=== PATIENT | male | born 1945 | race Caucasian/White ===

== ENCOUNTER 2021-09-03 16:36 | Emergency (ER) | payer MEDICARE, SELFPAY ==
[2021-09-03] VITALS (7 sets, daily range): BP systolic 116–143; BP diastolic 68–76; PULSE 75–84; RESP 16–18; TEMP 36.6–37; O2SAT 92–99; BMI 27.9
--- NOTE | 2021-09-03 17:09 | ECG_ITS ---
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 Measurements Intervals [place] Rate: 84 P: 47 [place]: 192 QRS: 52 QRSD: 106 T: 55 QT: 361 QTc: 428 Interpretive Statements SINUS RHYTHM WITH OCCASIONAL VENTRICULAR PREMATURE COMPLEXES INTERPRETATION BASED ON A DEFAULT AGE OF 40 YEARS No previous ECG available for comparison Electronically Signed On 09-03-2021 22:16:48 QUILL CLEANER by Dennis Resendez M.D. [email or web address] Imagingnoxubee general [email or web address] International Payrollmercy health fairfield hospitalCloakroom/store/NU/[id number] f
--- NOTE | 2021-09-03 17:09 | XRR_ITS ---
PROCEDURE INFORMATION: Exam: XR Chest Exam date and time: 09/03/2021 5:09 PM Age: 76 years old Clinical indication: Chest wall pain; Additional info: Chest pain TECHNIQUE: Imaging protocol: XR of the chest. Views: 1 view. COMPARISON: CT Cervical Spine wo* [id number] 10/30/2017 7:44 PM FINDINGS: Lungs: Unremarkable. No consolidation. Pleural spaces: Unremarkable. No pleural effusion. No pneumothorax. Heart/Mediastinum: Unremarkable. No cardiomegaly. Bones/joints: Unremarkable. XR/XR chest 1V portable [id number] IMPRESSION: No acute findings.
[2021-09-03 17:16] LABS: Basophils % 0.4 %; Eosinophils # 0.2 10^3/uL (0.0-0.8); Eosinophils % 3.2 %; Hematocrit 46.7 % (42.0-52.0); Hemoglobin 15.3 g/dL (11.7-16.6); Lymphocytes # 1.8 10^3/uL (0.8-4.8); Lymphocytes % 27.2 %; Mean Corpuscular HGB Conc 32.8 g/dL (30.0-36.0); Mean Corpuscular Hemoglobin 29.5 pg (28.0-34.0); Mean Corpuscular Volume 90.2 fl (80-94); Mean Platelet Volume 9.2 fL (7.4-10.4); Monocytes # 0.6 10^3/uL (0.2-0.9); Monocytes % 9.5 %; Neutrophils # 4.02 10^3/uL (1.8-7.7); Neutrophils % 59.4 %; Nucleated Red Blood Cells % 0 %; Platelet Count 221 10^3/cmm (130-400); Red Blood Count 5.18 10^6/uL (4.1-5.3); Red Cell Distribution Width 12.4 % (12.1-15.1); White Blood Count 6.8 10^3/uL (4.0-10.0)
[2021-09-03 17:41] LABS: Troponin(5th) Baseline 10 ng/L (0-15)
[2021-09-03 17:51] LABS: Alanine Aminotransferase 19 U/L (0-41); Albumin Level 4.6 g/dL (3.5-5.2); Alkaline Phosphatase 77 IU/L (40-130); Anion Gap 15.2 (5-19); Aspartate Amino Transferase 18 U/L (0-40); Blood Urea Nitrogen 15 mg/dL (8-23); Calcium 9.9 mg/dL (8.5-10.5); Carbon Dioxide 28 mmol/L (22-29); Chloride 99 mmol/L (98-107); Globulin 3.1 g/dL (1.3-4.6); Glucose 87 mg/dL (65-115); Lipase 24 U/L (13-60); NT Pro B Type Natriuretic Pept 79 pg/mL (0-450); Osmolality Calculated 286 mOsm/kg (285-295); Potassium 4.2 mmol/L (3.5-5.1); Sodium 138 mmol/L (136-145); Total Bilirubin 0.5 mg/dL (0.15-1.2); Total Protein 7.7 g/dL (6.6-8.7)
--- NOTE | 2021-09-03 18:05 | W.ED.CHESTPA ---
HPI - Chest Pain General: Chief Complaint: Chest Pain Stated Complaint: CP Time Seen by Provider: 09/03/21 17:11 Source: patient Mode of arrival: ambulatory Limitations: no limitations History of Present Illness: 76-year-old male states over the last 2 weeks he has been having some intermittent chest pain. States it is comes randomly and then resolves on its own. States that he has he was having pain in the center of his chest is pressure type pain he states that since resolved he is currently pain-free is no shortness of breath with these episodes no radiation of the pain denies any nausea or vomiting. Does have a history of high blood pressure Associated symptoms: Deny abdominal pain, dyspnea, fever(s), nausea or vomiting Review of Systems Const: Denies: fever(s), chills, body aches or change in appetite Eyes: Denies: blurry vision or eye discomfort ENMT: Denies: throat pain or dental pain Card: Reports: chest pain Resp: Denies: dyspnea GI: Denies: abdominal pain, nausea, vomiting or diarrhea : Denies: dysuria Musc: Denies: neck pain or back pain Skin/Breast: Denies: rash Neuro: Denies: headache(s) Psych: Denies: depression Marcel/Lymph: Denies: easy bruising All/Imm: Denies: urticaria PFSH ED PFSH: Medical History Hypertension Social History (Updated 09/03/21 @ 18:05 by Juany Burch MD) Substance/Drug Use: never Physical Exam Const: COMMON NORMALS: no acute distress, patient oriented x3 and healthy appearing HENMT: COMMON NORMALS: normocephalic and atraumatic HEAD & SCALP: normocephalic and atraumatic Eye: COMMON NORMALS: Equal, round and reactive pupils present and EOMs intact bilaterally PUPIL: Yes Equal, round and reactive pupils present Neck/C-Spine: COMMON NORMALS: full ROM and supple Chest: COMMONS NORMALS: normal inspection of the chest and normal palpation of entire chest wall Resp: COMMON NORMALS: normal respiratory effort, No retractions, No use of accessory muscles and clear to auscultation bilaterally AUSCULTATION: clear to auscultation bilaterally Cardio: COMMON NORMALS: regular rate, regular rhythm and No murmurs present (Cardio) RATE: regular rate RHYTHM: regular rhythm GI: COMMON NORMALS: Normal to inspection, nondistended, normoactive bowel sounds present, Soft to palpation, non-tender and no masses PALPATION: Yes Soft to palpation Extremity: COMMON NORMALS: normal to inspection and full ROM Neuro: COMMON NORMALS: patient oriented x3, moves all extremities and no focal motor deficits Psych: COMMON NORMALS: mental status grossly normal, Normal thought process present and cooperative THOUGHT PROCESS: Normal thought process present Skin: COMMON NORMALS: no rashes or lesions noted and no wounds GENERAL SKIN EXAM: no rashes or lesions noted Course Vital Signs: Vital signs: Vital Signs Temperature 98.4 F 09/03/21 18:00 Pulse Rate 75 09/03/21 19:32 Respiratory Rate 18 09/03/21 19:32 Blood Pressure 120/68 09/03/21 19:32 Pulse Oximetry 96 09/03/21 19:32 MDM - Chest Pain Medical Decision Making Patient presents here with chest pain has been going on for weeks he has been pain-free here EKG and troponins here are normal. He feels improved Bhupinder here as well. He is stable for discharge we will get him follow-up with cardiology he is return if worsening he understands agrees to plan. He has no signs of aortic dissection or pulmonary embolism. Lab Data : 09/03/21 17:06 09/03/21 17:06 Radiology Impressions Chest X-Ray 09/03/21 17:09 IMPRESSION: No acute findings. Laboratory Results WBC 6.8 10^3/uL (4.0-10.0) 09/03/21 17:06 RBC 5.18 10^6/uL (4.1-5.3) 09/03/21 17:06 Hgb 15.3 g/dL (11.7-16.6) 09/03/21 17:06 Hct 46.7 % (42.0-52.0) 09/03/21 17:06 MCV 90.2 fl (80-94) 09/03/21 17:06 MCH 29.5 pg (28.0-34.0) 09/03/21 17:06 MCHC 32.8 g/dL (30.0-36.0) 09/03/21 17:06 RDW 12.4 % (12.1-15.1) 09/03/21 17:06 Plt Count 221 10^3/cmm (130-400) 09/03/21 17:06 MPV 9.2 fL (7.4-10.4) 09/03/21 17:06 Neut % (Auto) 59.4 % 09/03/21 17:06 Lymph % (Auto) 27.2 % 09/03/21 17:06 [place] % (Auto) 9.5 % 09/03/21 17:06 Eos % (Auto) 3.2 % 09/03/21 17:06 Baso % (Auto) 0.4 % 09/03/21 17:06 Neut # (Auto) 4.02 10^3/uL (1.8-7.7) 09/03/21 17:06 Lymph # (Auto) 1.8 10^3/uL (0.8-4.8) 09/03/21 17:06 [place] # (Auto) 0.6 10^3/uL (0.2-0.9) 09/03/21 17:06 Eos # (Auto) 0.2 10^3/uL (0.0-0.8) 09/03/21 17:06 Baso # (Auto) 0.0 10^3/uL (0.0-0.1) 09/03/21 17:06 Nucleated RBC % (auto) 0 % 09/03/21 17:06 Nucleated RBCs # 0.0 /100WBC 09/03/21 17:06 Sodium 138 mmol/L (136-145) 09/03/21 17:06 Potassium 4.2 mmol/L (3.5-5.1) 09/03/21 17:06 Chloride 99 mmol/L (98-107) 09/03/21 17:06 Carbon Dioxide 28 mmol/L (22-29) 09/03/21 17:06 Anion Gap 15.2 (5-19) 09/03/21 17:06 BUN 15 mg/dL (8-23) 09/03/21 17:06 Creatinine 1.3 mg/dL (0.7-1.2) H 09/03/21 17:06 GFR Calculation Not Reportable 09/03/21 17:06 Glucose 87 mg/dL (65-115) 09/03/21 17:06 Calculated Osmolality 286 mOsm/kg (285-295) 09/03/21 17:06 Calcium 9.9 mg/dL (8.5-10.5) 09/03/21 17:06 Total Bilirubin 0.5 mg/dL (0.15-1.2) 09/03/21 17:06 AST 18 U/L (0-40) 09/03/21 17:06 ALT 19 U/L (0-41) 09/03/21 17:06 Alkaline Phosphatase 77 IU/L (40-130) 09/03/21 17:06 Troponin T Baseline 10 ng/L (0-15) 09/03/21 17:06 Troponin T 120 Minute 9.72 ng/L (0-15) 09/03/21 19:01 NT-Pro-B Natriuret Pep 79 pg/mL (0-450) 09/03/21 17:06 Total Protein 7.7 g/dL (6.6-8.7) 09/03/21 17:06 Albumin 4.6 g/dL (3.5-5.2) 09/03/21 17:06 Globulin 3.1 g/dL (1.3-4.6) 09/03/21 17:06 Lipase 24 U/L (13-60) 09/03/21 17:06 EKG Data EKG 1: I personally reviewed and interpreted this EKG as follows: EKG interpretation date: 09/03/21 EKG interpretation time: 16:44 Interpretation: nsr hr [address] or t wave abnormalities qrs 106 qtc 402 EKG 2: I personally reviewed and interpreted this EKG as follows: EKG interpretation date: 09/03/21 EKG interpretation time: 17:33 Interpretation: nsr hr [address] or t wave abnormalities qrs 105 qtc 411 Discharge Plan Discharge Patient Disposition: Home Clinical Impression: Chest pain Prescriptions: No Action lisinopril 20 mg tablet 20 mg PO DAILY 0RF tamsulosin 0.4 mg capsule 0.4 mg PO DAILY 0RF Discharge Orders: Discharge ED (Routine); Ordered 09/03/21 Ordered By: Juany Burch Referrals: Herb Reyes MD [Physician] - 1-3 days Discharge Diet: Advance as tolerated Discharge Activity: Resume usual activity Patient Instructions: Chest Pain (ED) Coding Level of Care Code ED Sand Plant Attendant for Chg Fwd Exam Comprehensive
--- NOTE | 2021-09-03 19:09 | ECG_ITS ---
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 Measurements Intervals [place] Rate: 68 P: 52 [place]: 193 QRS: 40 QRSD: 102 T: 46 QT: 385 QTc: 412 Interpretive Statements SINUS RHYTHM Compared to ECG 09/03/2021 16:44:54 Ventricular premature complex(es) no longer present Electronically Signed On 09-03-2021 22:20:52 BULLET SLUG CASTING MACHINE OPERATOR by Dennis Resendez M.D. [id number]
[2021-09-03 19:52] LABS: Troponin 5 2HR 9.72 ng/L (0-15)
[2021-09-03 20:02] LABS: Troponin 5 2HR Delta -0.28 ABS# (0-10)
--- NOTE | 2021-09-04 12:16 | DCPLANNER ---
Addendum entered by Rhonda Severino 09/13/21 14:40: Patient had a follow up appointment for patient with [facility] on 09.13.21 - patient did attend appointment. Original Note: commercial sales manager had message to schedule a follow up appointment for patient with [facility]. commercial sales manager called [facility], spoke with Miriam, gave clinic patients information. A follow up appointment is scheduled for , September 06, 2021 at 11:[address] Verdin. Patient is aware of appointment.
== END 2021-09-03 20:03 | disposition home or self-care (01) ==
PROVIDERS: Emergency Medicine; Emergency Provider Emergency Medicine
DX: R07.9 Chest pain, unspecified (principal); I10 Essential (primary) hypertension
CPT/HCPCS: 71045; 80053; 83690; 83880; 84484; 85025; 93005; 99283

== ENCOUNTER → 2021-09-13 10:14 | Outpatient (BNVA) | payer MEDICARE, SELFPAY | PROVIDERS: Visit Provider Internal Medicine Cardiovascular Disease | DX: I10 Essential (primary) hypertension (principal); Z09 Encounter for follow-up examination after completed treatment for conditions other than malignant neoplasm; R55 Syncope and collapse; R07.89 Other chest pain | CPT/HCPCS: 99024 ==

== ENCOUNTER 2022-01-07 12:33 | Outpatient (CLI) | payer MEDICARE, SELFPAY ==
--- NOTE | 2022-01-07 12:45 | USCV_ITS ---
Dillon Bradshaw Age: 76 Gender: M : 1945 Exam Date: 01/07/2022 13:35 Ordering Phys: Nasrin Echeverria MD ([email or web address]) Technologist: HAMILTON Exam Location: [facility] [place] Indication: History of valve disease BP: 118 / 66 HR: 67 Rhythm: Sinus Technical Quality: Suboptimal MEASUREMENTS (Male / Female) Normal Values 2D ECHO LV Diastolic Diameter PLAX 4.7 cm 4.2 - 5.9 / 3.9 - 5.3 cm LV Systolic Diameter PLAX 3.7 cm IVS Diastolic Thickness 1.2 cm 0.6 - 1.0 / 0.6 - 0.9 cm IVS Systolic Thickness 1.4 cm LVPW Diastolic Thickness 1.2 cm 0.6 - 1.0 / 0.6 - 0.9 cm LVPW Systolic Thickness 1.6 cm RV Chamber Size 2.7 cm LVOT Diameter 2.0 cm LV Ejection Fraction 2D Teich 45.1 % LV Ejection Fraction MOD 2C 44.0 % LV Ejection Fraction 2C AL 46.2 % LA Diameter 3.5 cm LA Width 3.1 cm LA Height 4.5 cm RA Width 3.4 cm RA Height 4.9 cm Aorta at Sinotubular Diameter 3.3 cm IVC Diameter 1.6 cm M-MODE Aortic Annulus Diameter 3.7 cm LA Ao Ratio MM 1.1 MV E Point Septal Separation 0.9 cm DOPPLER AV Peak Velocity 125.0 cm/s LVOT Peak Velocity 100.0 cm/s AV Area Cont Eq vti 2.8 cm squared AV Area Cont Eq pk 2.5 cm squared MV Area PHT 3.5 cm squared Mitral E to A Ratio 0.9 MV E' Velocity 29.0 cm/s Mitral E to MV E' Ratio 9.0 Mitral E to LV E' Lateral Ratio 7.3 Mitral E to LV E' Septal Ratio 11.7 TR Peak Velocity 194.0 cm/s TR Peak Gradient 15.1 mmHg Right Atrial Pressure 3.0 mmHg Pulmonary Artery Systolic Pressu 18.1 mmHg PV Peak Velocity 79.0 cm/s RV Acceleration Time 0.1 s RV Ejection Time 0.3 s RV AcT/ET 0.4 FINDINGS Left Ventricle Normal left ventricular size and systolic function, EF 57 %. No regional wall motion abnormalities. Grade I/IV diastolic dysfunction (abnormal relaxation filling pattern), normal to mildly elevated filling pressures. Right Ventricle The right ventricle is normal in size and function. Right Atrium The right atrium is normal in size. Left Atrium The left atrium is normal in size. Mitral Valve Thickened mitral valve. Aortic Valve Thickened aortic valve. Tricuspid Valve Trace tricuspid valve regurgitation. Pulmonic Valve Pulmonic valve not well visualized. Pericardium Normal pericardium without effusion. Aorta Normal aortic annulus size. IVC Normal inferior vena cava. CONCLUSIONS Normal left ventricular size and systolic function, EF 57 %. No regional wall motion abnormalities. Grade I/IV diastolic dysfunction (abnormal relaxation filling pattern), normal to mildly elevated filling pressures. Thickened aortic and mitral valves. Trace tricuspid valve regurgitation. Estimated pulmonary artery peak systolic pressure, within normal limits There is no pericardial effusion. There are no intracardiac masses. No similar previous studies are available for comparison Dr Nasrin Echeverria MD FACC (Electronically Signed) Final Date: 07 January 2022 20:36 S
== END 2022-01-07 12:34 | disposition home or self-care (01) ==
PROVIDERS: Visit Provider Internal Medicine Cardiovascular Disease
DX: R06.00 Dyspnea, unspecified (principal); R07.89 Other chest pain
CPT/HCPCS: 93306

== ENCOUNTER 2022-03-01 04:38 | Emergency (ER) | payer MEDICARE, SELFPAY ==
[2022-03-01 05:03] VITALS: BP 174/118; PULSE 84; RESP 20; TEMP 36.7; O2SAT 96; BMI 27.2
--- NOTE | 2022-03-01 05:07 | ED_ITS ---
HPI - Abdominal Pain General: Chief Complaint: Urogenital-Male Stated Complaint: Can not Pee Time Seen by Provider: 03/01/22 05:03 Source: patient Mode of arrival: ambulatory Limitations: no limitations History of Present Illness: 76-year-old male states he is not been able to urinate since 10 PM last night. He states he had a difficult time in the past but is never where he could not urinate states has not been able urinate at all and started to have pain in his lower abdomen. He states he feels the urge but not able to produce any urine. No history of prostate problems he knows of denies any vomiting diarrhea or fever. Associated Symptoms: Denies chills and fever(s) Review of Systems Const: Denies: fever(s), chills, body aches or change in appetite Eyes: Denies: blurry vision or eye discomfort ENMT: Denies: throat pain or dental pain Card: Denies: chest pain Resp: Denies: dyspnea GI: Reports: abdominal pain : Reports: difficulty urinating Musc: Denies: neck pain or back pain Skin/Breast: Denies: rash Neuro: Denies: headache(s) Psych: Denies: depression Marcel/Lymph: Denies: easy bruising All/Imm: Denies: urticaria PFSH ED PFSH: Medical History Hypertension Family History Mother CAD (coronary artery disease) murmur Dementia Father Cancer Denies family history of Diabetes Clotting disorder Chronic kidney disease (CKD) Suicide Anesthesia complication Bleeding disorder Lung disease Stroke Social History Smoking and tobacco status: never smoked Alcohol intake: never Physical Exam Const: COMMON NORMALS: no acute distress, patient oriented x3 and healthy appearing HENMT: COMMON NORMALS: normocephalic and atraumatic HEAD & SCALP: normocephalic and atraumatic Eye: COMMON NORMALS: Equal, round and reactive pupils present and EOMs intact bilaterally PUPIL: Yes Equal, round and reactive pupils present Neck/C-Spine: COMMON NORMALS: full ROM and supple Chest: COMMONS NORMALS: normal inspection of the chest and normal palpation of entire chest wall Resp: COMMON NORMALS: normal respiratory effort, No retractions, No use of accessory muscles and clear to auscultation bilaterally AUSCULTATION: clear to auscultation bilaterally Cardio: COMMON NORMALS: regular rate, regular rhythm and No murmurs present (Cardio) RATE: regular rate RHYTHM: regular rhythm GI: COMMON NORMALS: Normal to inspection, nondistended, normoactive bowel sounds present, Soft to palpation and no masses PALPATION: Yes Soft to palpation OTHER: suprapubic tenderness Extremity: COMMON NORMALS: normal to inspection and full ROM Neuro: COMMON NORMALS: patient oriented x3, moves all extremities and no focal motor deficits Psych: COMMON NORMALS: mental status grossly normal, Normal thought process present and cooperative THOUGHT PROCESS: Normal thought process present Skin: COMMON NORMALS: no rashes or lesions noted and no wounds GENERAL SKIN EXAM: no rashes or lesions noted Course Vital Signs: Vital signs: Vital Signs Temperature 98.0 F 03/01/22 05:03 Pulse Rate 84 03/01/22 05:03 Respiratory Rate 20 H 03/01/22 05:03 Blood Pressure 174/118 03/01/22 05:03 Pulse Oximetry 96 03/01/22 05:03 MDM - Abdominal Pain Medical Decision Making Patient presents with urinary retention he feels much improved after Lewis had a large amount of urine out will leave Lewis in place he is to follow-up with Dr. Goodson he understands agrees to plan. Lab Data Labs/Radiology: Laboratory Results Urine Color Colorless (Yellow) 03/01/22 05:15 Urine Appearance Clear (CLEAR) 03/01/22 05:15 Urine pH 6.5 (5-7) 03/01/22 05:15 Ur Specific Isabella 1.010 (1.005-1.030) 03/01/22 05:15 Urine Protein Neg (Negative) 03/01/22 05:15 Urine Glucose (UA) Norm (Normal) 03/01/22 05:15 Urine Ketones Negative (Negative) 03/01/22 05:15 Urine Blood Trace (Negative) H 03/01/22 05:15 Urine Nitrate Negative (Negative) 03/01/22 05:15 Urine Bilirubin Neg (Negative) 03/01/22 05:15 Urine Urobilinogen Norm mg/dL (Negative) 03/01/22 05:15 Ur Leukocyte Esterase Negative (Negative) 03/01/22 05:15 Discharge Plan Discharge Patient Disposition: Home Clinical Impression: Acute urinary retention Condition: Stable Prescriptions: No Action metoprolol tartrate 25 mg tablet 25 mg PO BID Qty: 60 5RF Rx Instructions: 1 tab twice daily for irregular heart rhythm magnesium L-lactate [Magtab] 84 mg tablet extended release 168 mg PO DAILY Qty: 60 5RF Rx Instructions: 2 tabs daily for irregular heart rhythm lisinopril 20 mg tablet 20 mg PO DAILY tamsulosin 0.4 mg capsule 0.4 mg PO DAILY Discharge Orders: Discharge ED (Routine); Ordered 03/01/22 Ordered By: Juany Burch Referrals: Nikos Goodson MD [Physician] - 1-3 days Discharge Diet: Advance as tolerated Discharge Activity: Resume usual activity Patient Instructions: Urinary Retention in Men (ED) Coding Level of Care Code ED Consulting Sme for Mehnaz Fwd Exam Comprehensive
[2022-03-01 05:38] LABS: Urine Appearance Clear (CLEAR); Urine Color Colorless (Yellow); pH Urine 6.5 (5-7)
[2022-03-01 05:39] LABS: Add Urine Microscopic? YES; Bilirubin Urine Neg (Negative); Blood Urine Trace (Negative); Glucose Urine UA Norm (Normal); Ketones Urine Negative (Negative); Leukocyte Esterase Urine Negative (Negative); Nitrate Urine Negative (Negative); Protein Urine Neg (Negative); Urobilinogen Urine Norm (Negative)
[2022-03-01 05:52] VITALS: BP 144/84; RESP 18
[2022-03-01 05:53] LABS: Add Urine Culture? No; RBC Urine 0-4 /hpf (0-2)
== END 2022-03-01 05:52 | disposition home or self-care (01) ==
LOC: ER 05:30
PROVIDERS: Emergency Provider Emergency Medicine
DX: R33.9 Retention of urine, unspecified (principal); I10 Essential (primary) hypertension
CPT/HCPCS: 51702; 81001; 99283

== ENCOUNTER 2022-03-07 14:24 | Emergency (ER) | payer MEDICARE, SELFPAY ==
[2022-03-07 15:14] VITALS: PULSE 109; RESP 18; TEMP 37.6; O2SAT 96; BMI 27.9
--- NOTE | 2022-03-07 16:41 | W.ED.MALEGU ---
HPI - Male Genitourinary General: Chief complaint: Back Pain/Injury Stated complaint: infection in his penis (catater) Time Seen by Provider: 03/07/22 16:23 Source: patient and family Mode of arrival: ambulatory Limitations: no limitations History of Present Illness: This patient returns to the emergency part because of urinary urgency, some mild low back pain and what he thinks is some purulent drainage around his Lewis. He had a Lewis placed last week because of urinary retention and has been doing okay up until the last 2 to 3 days. He denies any fevers or known chills. He states he has been taking Flomax twice a day as well as some [id number] prostate medications. He states he has been drinking fluids. No cough, sore throat or other potential etiology to ill feeling. Context: indwelling catheter Associated symptoms: Deny nausea or vomiting Review of Systems Const: Denies: fever(s) or chills Eyes: Denies: change in vision ENMT: Denies: odynophagia or nasal congestion Card: Denies: chest pain, palpitations or edema Resp: Denies: dyspnea, productive cough or non-productive cough GI: Denies: nausea, vomiting or diarrhea : Reports: urinary urgency; Denies: flank pain Musc: Denies: neck pain, extremity pain or extremity swelling Skin/Breast: Denies: rash Neuro: Denies: headache(s) Psych: Denies: anxiety or depression [facility] ED PFSH: Medical History Hypertension Family History Mother CAD (coronary artery disease) murmur Dementia Father Cancer Denies family history of Diabetes Clotting disorder Chronic kidney disease (CKD) Suicide Anesthesia complication Bleeding disorder Lung disease Stroke Social History Smoking and tobacco status: never smoked Alcohol intake: never Physical Exam Narrative: EXAM NARRATIVE: He is cooperative makes good eye contact. Answers questions in a fluent, goal-directed fashion. Const: COMMON NORMALS: average body habitus and patient oriented x3 GENERAL APPEARANCE: cooperative and comfortable HENMT: COMMON NORMALS: normocephalic, Normal nasal mucous membranes and turbinates present and moist oral mucous membranes HEAD & SCALP: normocephalic NOSE: Normal nasal mucous membranes and turbinates present Eye: COMMON NORMALS: Equal, round and reactive pupils present, EOMs intact bilaterally and conjunctivae normal CONJUNCTIVA: Yes conjunctivae normal PUPIL: Yes Equal, round and reactive pupils present Neck/C-Spine: COMMON NORMALS: full ROM, no lymphadenopathy and No carotid bruits Chest: COMMONS NORMALS: normal inspection of the chest Resp: COMMON NORMALS: normal respiratory effort, No use of accessory muscles and clear to auscultation bilaterally AUSCULTATION: clear to auscultation bilaterally Cardio: COMMON NORMALS: regular rate, regular rhythm and Peripheral pulses 2+ throughout RATE: regular rate RHYTHM: regular rhythm PERIPHERAL PULSES: Peripheral pulses 2+ throughout GI: COMMON NORMALS: Normal to inspection, nondistended, normoactive bowel sounds present, Soft to palpation and non-tender PALPATION: Yes Soft to palpation : COMMON NORMALS: Yes no CVA tenderness BLADDER/KIDNEY EXAM: Yes catheter in place and Yes no CVA tenderness PENIS: uncircumcised OTHER: His Lewis is in situ. He has some very minimal irritation and erythema of the urethral meatus. He does have some erythema to the skin to the left of his inguinal crease. No drainage no breakdown. Bedside ultrasound was used to visualize the urinary bladder. It appeared to be decompressed and with a small amount of fluid around what appeared to be a inflated Lewis balloon within the confines of the urinary bladder. Back/Pelvis: COMMON NORMALS: no CVA tenderness, thoracic and lumbar spine normal to inspection and thoraco-lumbar ROM normal Extremity: COMMON NORMALS: normal to inspection, full ROM and no pedal edema Neuro: COMMON NORMALS: patient oriented x3, moves all extremities, no focal motor deficits and no sensory deficits noted SPEECH: speech normal Psych: COMMON NORMALS: mental status grossly normal Skin: COMMON NORMALS: turgor normal NARRATIVE SKIN EXAM: Mild erythema in the left inguinal crease and the left side of the scrotal skin as noted above. GENERAL SKIN EXAM: turgor normal Course Reevaluation(s): Reevaluation #1: Patient states he is feeling much better. He is received his antibiotics. He is looks comfortable on clinical examination without any new or focal findings. Time: 20:14 Vital Signs: Vital signs: Vital Signs Temperature 99.7 F H 03/07/22 15:14 Pulse Rate 86 03/07/22 18:52 Respiratory Rate 14 03/07/22 18:52 Blood Pressure 139/75 03/07/22 18:52 Pulse Oximetry 93 03/07/22 18:52 Oxygen Delivery Me thod 03/07/22 18:52 MDM - Male Medical Decision Making WithPatient had an indwelling Lewis for urinary retention systemic symptoms suggestive of possible infection versus catheter malfunction. His evaluation in the emergency department did find nitrite positive urine suggestive of lower urinary tract infection. No evidence to suggest sepsis or other worrisome medical condition at this time. He was given the benefit of IV antibiotics IV fluids and antispasmodics. He will be discharged on antibiotics until he sees the urologist this coming week. We will also provide him with antispasmodics. All return precautions were discussed in detail with both he and spouse. Medical Records I reviewed the patient's medical records. Lab Data I reviewed the patient's lab results. : 03/07/22 17:15 03/07/22 19:35 Laboratory Results WBC 14.7 10^3/uL (4.0-10.0) H 03/07/22 17:15 RBC 4.58 10^6/uL (4.1-5.3) 03/07/22 17:15 Hgb 13.6 g/dL (11.7-16.6) 03/07/22 17:15 Hct 40.9 % (42.0-52.0) L 03/07/22 17:15 MCV 89.3 fl (80-94) 03/07/22 17:15 MCH 29.7 pg (28.0-34.0) 03/07/22 17:15 MCHC 33.3 g/dL (30.0-36.0) 03/07/22 17:15 RDW 13.0 % (12.1-15.1) 03/07/22 17:15 Plt Count 174 10^3/cmm (130-400) 03/07/22 17:15 MPV 9.8 fL (7.4-10.4) 03/07/22 17:15 Neut % (Auto) 85.1 % 03/07/22 17:15 Lymph % (Auto) 5.2 % 03/07/22 17:15 [place] % (Auto) 8.9 % 03/07/22 17:15 Eos % (Auto) 0.2 % 03/07/22 17:15 Baso % (Auto) 0.2 % 03/07/22 17:15 Neut # (Auto) 12.50 10^3/uL (1.8-7.7) H 03/07/22 17:15 Lymph # (Auto) 0.8 10^3/uL (0.8-4.8) 03/07/22 17:15 [place] # (Auto) 1.3 10^3/uL (0.2-0.9) H 03/07/22 17:15 Eos # (Auto) 0.0 10^3/uL (0.0-0.8) 03/07/22 17:15 Baso # (Auto) 0.0 10^3/uL (0.0-0.1) 03/07/22 17:15 Nucleated RBC % (auto) 0 % 03/07/22 17:15 Nucleated RBCs # 0.0 /100WBC 03/07/22 17:15 Sodium Cancelled 03/07/22 17:15 Potassium 4.1 mmol/L (3.5-5.1) 03/07/22 19:35 Chloride 98 mmol/L (98-107) 03/07/22 19:35 Carbon Dioxide 25 mmol/L (22-29) 03/07/22 19:35 Anion Gap 15.1 (5-19) 03/07/22 19:35 BUN 13 mg/dL (8-23) 03/07/22 19:35 Creatinine 0.9 mg/dL (0.7-1.2) 03/07/22 19:35 GFR Calculation Not Reportable 03/07/22 19:35 Glucose 106 mg/dL (65-115) 03/07/22 19:35 Calculated Osmolality Cancelled 03/07/22 17:15 Lactate 1.4 mmol/L (0.5-2.2) 03/07/22 17:15 Calcium 9.3 mg/dL (8.5-10.5) 03/07/22 19:35 Total Bilirubin 0.3 mg/dL (0.15-1.2) 03/07/22 19:35 AST 17 U/L (0-40) 03/07/22 19:35 ALT 17 U/L (0-41) 03/07/22 19:35 Alkaline Phosphatase 81 U/L (40-130) 03/07/22 19:35 Total Protein 7.0 g/dL (6.6-8.7) 03/07/22 19:35 Albumin Cancelled 03/07/22 17:15 Globulin 3.6 g/dL (1.3-4.6) 03/07/22 19:35 Urine Color Yellow (Yellow) 03/07/22 18:15 Urine Appearance Hazy (CLEAR) A 03/07/22 18:15 Urine pH 6 (5-7) 03/07/22 18:15 Ur Specific [place] 1.015 (1.005-1.030) 03/07/22 18:15 Urine Protein 2+ (Negative) H 03/07/22 18:15 Urine Glucose (UA) Norm (Normal) 03/07/22 18:15 Urine Ketones 1+ (Negative) H 03/07/22 18:15 Urine Blood 3+ (Negative) H 03/07/22 18:15 Urine Nitrate Positive (Negative) H 03/07/22 18:15 Urine Bilirubin Neg (Negative) 03/07/22 18:15 Urine Urobilinogen 4+ mg/dL (Negative) H 03/07/22 18:15 Ur Leukocyte Esterase 2+ (Negative) H 03/07/22 18:15 Urine RBC Not Reportable 03/07/22 18:15 Urine WBC Not Reportable 03/07/22 18:15 Ur Squamous Epith Cells Not Reportable 03/07/22 18:15 Amorphous Sediment Not Reportable 03/07/22 18:15 Urine Bacteria Not Reportable 03/07/22 18:15 Discharge Plan Discharge Patient Disposition: Home Clinical Impression: Urinary tract infection, Acute urinary retention Condition: Stable Prescriptions: New sulfamethoxazole-trimethoprim [Bactrim DS] 800-160 mg tablet 1 tab PO BID 7 Days Qty: 14 0RF hyoscyamine sulfate [Levsin] 0.125 mg tablet 0.125 mg PO TID PRN (Reason: bladder spasms) Qty: 20 0RF No Action tamsulosin 0.4 mg capsule 0.4 mg PO DAILY Prostate Max Plus 125 mg-10 mcg- 250 mg Tablet 2 tab PO DAILY Discharge Orders: Discharge ED (Routine); Ordered 03/07/22 Ordered By: Harlan Shetty Discharge Diet: Usual diet Discharge Activity: Increase activity as tolerated Patient Instructions: Opioid Safety Activity Restrictions/Additional Instructions: Only take 1 Flomax pill daily. We recommend taking it at bedtime. Take the antibiotics prescribed beginning tomorrow morning twice daily for the next 7 days. You may use the Levsin as needed for any bladder spasm. Should you develop high fevers, intolerance to medication, increasing or changing pain or any other concern return to this or the nearest emergency department. Follow-up with urologist as scheduled. Coding Level of Care Code ED Mold Shifter for Mehnaz Bagley Exam Comprehensive
[2022-03-07 17:39] LABS: Basophils % 0.2 %; Eosinophils % 0.2 %; Hematocrit 40.9 % (42.0-52.0); Hemoglobin 13.6 g/dL (11.7-16.6); Lymphocytes # 0.8 10^3/uL (0.8-4.8); Lymphocytes % 5.2 %; Mean Corpuscular HGB Conc 33.3 g/dL (30.0-36.0); Mean Corpuscular Hemoglobin 29.7 pg (28.0-34.0); Mean Corpuscular Volume 89.3 fl (80-94); Mean Platelet Volume 9.8 fL (7.4-10.4); Monocytes # 1.3 10^3/uL (0.2-0.9); Monocytes % 8.9 %; Neutrophils % 85.1 %; Nucleated Red Blood Cells % 0 %; Platelet Count 174 10^3/cmm (130-400); Red Blood Count 4.58 10^6/uL (4.1-5.3); White Blood Count 14.7 10^3/uL (4.0-10.0)
--- NOTE | 2022-03-07 17:40 | PC.PHAR ---
pt had lisinopril 20mg filled 02/12/22 90ds - pt states he stopped taking med because it made him fell loopy pt sts he only takes prostate med and prostate vitamins at this time
[2022-03-07 17:56] LABS: Lactate (Lactic Acid level) 1.4 mmol/L (0.5-2.2)
[2022-03-07] MEDS: hyoscyamine ODT 0.125 mg Tablet 0.25 MG PO (18:22)
[2022-03-07 18:33] LABS: Charge for UA Resulting for Rev
[2022-03-07 18:46] LABS: Bilirubin Urine Neg (Negative); Blood Urine 3+ (Negative); Glucose Urine UA Norm (Normal); Ketones Urine 1+ (Negative); Nitrate Urine Positive (Negative); Protein Urine 2+ (Negative); Specific Gravity, Urine 1.015 (1.005-1.030); Urine Appearance Hazy (CLEAR); Urine Color Yellow (Yellow); Urobilinogen Urine 4+ mg/dL (Negative); pH Urine 6 (5-7)
[2022-03-07 18:47] LABS: Add Urine Culture? Yes; Add Urine Microscopic? YES; Leukocyte Esterase Urine 2+ (Negative)
[2022-03-07 18:52] VITALS: BP 139/75; PULSE 86; RESP 14; O2SAT 93
[2022-03-07 19:37] VITALS: O2SAT 95
[2022-03-07] MEDS: cefTRIAXone 2,000 MG in sodium chloride 0.9% (plus) 50 ML 100 MG IV (19:53)
[2022-03-07 20:00] VITALS: BP 131/79; O2SAT 96
[2022-03-07 20:14] LABS: Alanine Aminotransferase 17 U/L (0-41); Albumin Level 3.4 g/dL (3.5-5.2); Alkaline Phosphatase 81 U/L (40-130); Anion Gap 15.1 (5-19); Aspartate Amino Transferase 17 U/L (0-40); Blood Urea Nitrogen 13 mg/dL (8-23); Calcium 9.3 mg/dL (8.5-10.5); Carbon Dioxide 25 mmol/L (22-29); Chloride 98 mmol/L (98-107); Globulin 3.6 g/dL (1.3-4.6); Glucose 106 mg/dL (65-115); Osmolality Calculated 279 mOsm/kg (285-295); Potassium 4.1 mmol/L (3.5-5.1); Sodium 134 mmol/L (136-145); Total Bilirubin 0.3 mg/dL (0.15-1.2)
[2022-03-07 20:30] VITALS: BP 145/79; O2SAT 94
== END 2022-03-07 21:00 | disposition home or self-care (01) ==
PROVIDERS: Emergency Provider Emergency Medicine
DX: N39.0 Urinary tract infection, site not specified (principal); R33.9 Retention of urine, unspecified; I10 Essential (primary) hypertension
CPT/HCPCS: 80053; 81001; 81003; 83605; 85025; 87077; 87086; 87186; 96374; 99284; J0696

== ENCOUNTER 2022-03-25 06:45 | Outpatient (CLI) | payer MEDICARE, SELFPAY ==
[2022-03-25 06:54] VITALS: BMI 27.2
--- NOTE | 2022-03-25 07:08 | NMCV_ITS ---
NM [place] perf SPECT r/s* [id number] Dillon Bradshaw Age: 76 Gender: M : 1945 Exam Date: 03/25/2022 07:53 Ordering Phys: Nasrin Echeverria MD ([email or web address]) Technologist: JORGE Larson Exam Location: [facility] Indications: SHORTNESS OF BREATH, CHEST PAIN STRESS TEST Please see separate stress test report in [facility] for full findings IMAGE PROTOCOL Rest/Stress 1 Lexiscan Day Radiopharmaceutical Dose (mCi) Administration Site Administered by Rest: Tc-99m 10.7 IV JORGE Flores Sestamibi Stress:Tc-99m 32.8 IV JORGE Larson Sestamimary Rest: 25-Mar-2022 60 Discovery 630 Stress: 25-Mar-2022 30 Discovery 630 0.4mg Lexiscan. Images obtained in supine and prone position. SPECT RESULTS Technical Quality: Excellent Raw Data Analysis: Normal Image Corrections: No attenuation or motion correction applied Summed Stress Score: 10 Summed Rest Score: 0 Summed Difference Score: 10 PERFUSION FINDINGS Medium sized perfusion abnormality of moderate severity of basal to mid inferior, basal to mid inferolateral, mid anterolateral and apical lateral ulloa on stress images. There is improved tracer uptake in inferior wall on prone stress images. FUNCTIONAL RESULTS (calculated via Gated SPECT) Stress Image LV EF (%): 66 Stress EDV (mL):115 TID: 0.76 Stress ESV (mL):39 FUNCTIONAL FINDINGS: The left ventricle is normal in size. Transient Ischemia Dilatation of 0.76. There is normal left ventricular systolic function. The left ventricular ejection fraction is normal with a value of 66%. There seems to be mild hypokinesis of apical lateral wall. IMPRESSIONS 1. Small sized reversible perfusion abnormality of moderate severity of basal to mid inferolateral, mid anterolateral and apical lateral ulloa. This may represent small area of ischemia in circumflex artery territory. 2. The left ventricular ejection fraction is normal with a value of 66%. 3. There seems to be mild hypokinesis of apical lateral wall. 4. No EKG changes with Lexiscan infusion. Frequent isolated PVCs noted throughout the study. Refer to separate report for details. Anita Verdin MD (Electronically Signed) Final Date: 26 March 2022 18:20 S
--- NOTE | 2022-03-25 07:08 | ECG_ITS ---
[facility] Test Date: 2022-03-25 Pat Name: Dillon Bradshaw Department: Room: Gender: Male Intake Clerk: : 1945 Requested By: Nasrin Echeverria Order Number: [id number] Robert MD: Anita Verdin M.D. Interpretive Statements NAME OF STUDY: LEXISCAN SESTAMIBI STRESS TEST INDICATION: Chest Pain PROCEDURE: At the baseline, the blood pressure was 128/84 mmHg with a heart rate of 66 bpm. The electrocardiogram showed sinus rhythm with frequent PVC. Normal axis. Artifact. Nonspecific ST changes. The Lexiscan was infused over a period of 20 seconds. A total of 0.4 milligrams of Lexiscan was infused. The stress phase was continued for a total of 5 minutes. Heart rate at the end of the stress phase was 86 bpm with a blood pressure of 132/69 mmHg. The EKG at the peak infusion revealed sinus rhythm with frequent PVCs with no significant ST-T wave changes. Sestamibi was injected 20 seconds after the Lexiscan infusion. Blood pressure at the end of the recovery phase was 135/72 mmHg with a heart rate of 83 beats per minute. Frequent PVCs noted in recovery as well. CONCLUSION: 1. No significant EKG changes with the LexiScan infusion 2. No LexiScan induced chest pain. Frequent isolated PVCs noted throughout the study. 3. Normal blood pressure and heart rate response. 4. Sestamibi/sestamibi perfusion scan pending; see separate report. Electronically Signed On 03-26-2022 18:13:19 CDT by Anita Verdin M.D. [email or web address]
[2022-03-25 09:02] VITALS: BP 135/72; PULSE 85
[2022-03-25] MEDS: regadenoson 0.4 Mg/5 ml Syringe IVP (09:04)
== END 2022-03-25 06:46 | disposition home or self-care (01) ==
PROVIDERS: PCP Nurse Practitioner Family; Visit Provider Internal Medicine Cardiovascular Disease
DX: R07.9 Chest pain, unspecified (principal)
CPT/HCPCS: 78452; 93017; A9500; J2785

== ENCOUNTER → 2022-04-03 10:50 | Outpatient (BNVA) | payer MEDICARE, SELFPAY | PROVIDERS: PCP Nurse Practitioner Family; Visit Provider Internal Medicine Cardiovascular Disease | DX: R94.39 Abnormal result of other cardiovascular function study (principal); I10 Essential (primary) hypertension; R00.0 Tachycardia, unspecified; R07.89 Other chest pain | CPT/HCPCS: 99214; 99215 ==

== ENCOUNTER 2022-04-10 05:42 | Outpatient (CLI) | payer MEDICARE, SELFPAY ==
[2022-04-10] VITALS (18 sets, daily range): BP systolic 106–142; BP diastolic 62–88; PULSE 57–75; RESP 13–19; TEMP 36.6; O2SAT 92–96; BMI 28.5
--- NOTE | 2022-04-10 06:00 | XACV_ITS ---
Exam Room: 2 Ht: 178 cm Wt: 90 kg BSA: 2.13 m2 Gender: Male : 1945 Any Known Allergies: No known allergies Exam Priority: Routine Procedure(s): Procedure Description: Diagnostic procedure Procedure Description: Left Heart Catheterization Procedure Description: Coronary Angiography Juwan EVANS; Diagnostic Cath Status: Elective Diagnostic Findings * Left main is a medium caliber vessel with a no significant obstructive lesions. * The left anterior descending artery is a medium caliber vessel which appears to wrap around the LV apex. The proximal and mid LAD was found to have mild to moderate diffuse coronary calcification. No significant stenotic lesions were seen. The diagonal branches also were found to have mild diffuse disease. No significant stenotic lesions. * The intermedius artery is a small to medium caliber vessel with an ostial tubular narrowing of around 50%. Diffuse intimal antibodies were noted in the proximal and mid segments. * The left circumflex artery is a medium caliber vessel which has mild diffuse intimal irregularities proximally. It gives off a large obtuse marginal branch proximally which appears to bifurcate at its takeoff. One of the bifurcation branches was found to have an ostial around 50-60% stenosis. The AV groove branch is a slender long vessel with minimal intimal irregularities. * The right coronary artery is a medium caliber vessel which he was found to have 20 to 30% diffuse irregular narrowing in the mid and distal segments. No significant stenotic lesions were noted. The PLV branch was found to be somewhat ectatic but minimal intimal irregularities. No significant stenotic lesions. Conclusions 1. 76-year-old white male with multiple risk factors for coronary artery disease, presenting with complaints of chest pain. Abnormal Myocardial perfusion imaging suggesting ischemia in the distribution of the left circumflex artery. Because of the patient's ongoing symptoms and the preop status, in order to further evaluate his symptoms, a left heart catheterization with selective right coronary angiogram was recommended. Patient underwent the procedure today. The results are as follows. 2. Moderate stenosis in one of the obtuse marginal branches at its ostium. Mild diffuse disease in the other vessels. Mild to moderate diffuse calcification in the left anterior descending artery and right coronary artery. Normal LV ejection fraction of 55%. Evidence of left-ventricular diastolic dysfunction with an LVEDP of 24 mmHg. I reviewed and discussed the angiogram findings with the Dr. Finnegan need to decide whether he needs an IFR of the OM lesion. Since the lesion did not appear to be significant, it was decided to optimize his medical treatment. Diagnostic RX Recommendation: medical therapy and/or counseling LV EDP: 24 mmHg Ventriculography Ejection Fraction: 55.0 % Left Ventriculography Findings: * The LV gram was performed in the IVAN view. The overall LV ejection fraction was around 55%. The LV opacification was suboptimal in quality. There was no filling defects noted. LVEDP was 24 mmHg. Pressures Phase:Rest AO : 120 / 65 ( 89 ) @ 8:23:00 AM 127 / 60 ( 89 ) @ 8:23:00 AM LV : 117 / -4 / 24 @ 8:22:00 AM 121 / -1 / 24 @ 8:23:00 AM 121 / -1 / 26 @ 8:23:00 AM Valves Phase:DefaultPhase AV : 0.0 @ 7:43:16 AM AV Mean Gradient: 0.0 @ 7:43:16 AM 0.0 @ 7:43:16 AM Clinical Evaluation EBL: 5mL-10mL Procedural Details Procedure Consent Obtained. Admit Source: Out Patient. Pre-Procedure Time Out. Identified patient by full name and date of as verbalized by the patient/guarantor. Does the consent match the physician's order: Yes. Accurate & Complete Informed Consent: Yes. Inpatient/Outpatient History & Physical on Chart: Yes. If H&P is completed, is and addenduem needed: Yes; If yes, is the addendum complete: Yes. Visualize and Verify Site with Patient/Guarantor: N/A. Relevant Radiology Images available: NA. The risks, benefits, and alternatives of sedation and/or procedure were discussed by physician. The patient agrees to continue. Procedure started. [facility] Clinical Fraility Score: 3: Managing Well. Manager Public Indications: Worsening Angina. Chest Pain Symptom Assessment: Atypical Angina. Correct patient, site and procedure confirmed by cath team. Current diagnosis: Chest Pain, Abnormal stress test. PERRLA. Strong, equal hand vp customer development bilaterally. Lungs clear x 5 lobes. IV Site on Arrival: 20 gauge in the right anticubital. IV Fluids: 0.9% NaCl at KVO. 0 mL infused prior to geotechnical laboratory technician. Pre Procedural Pulses: bilateral radial was 3+. Pre Procedural Pulses: bilateral dorsalis pedis was 2+. Pre Procedural Pulses: bilateral posterior tibial was 2+. Oxygen started at 2liters/min via nasal canula. right radial was prepped with chloroprep then draped in the usual sterile fashion. left groin was prepped with chloroprep then draped in the usual sterile fashion. Baseline sample Acquired. HR: 62 BPM. Physician notified. Physician arrived. Physician scrubbed in. Immediate Pre-Procedure Time Out. Correct Patient: Yes; Correct Procedure: Yes; Correct Site: Yes; Correct Patient Position: Yes; Correct Supplies: Yes; Dried Flammable Prep: Yes; Blood Products Available: No;. Lidocaine 1% infiltrated to the right radial. Arterial access obtained. A 5 panamanian Isaias catheter in over wire. Exchange wire out. Multiple views taken of left coronary artery. Catheter redirected to the RCA. Catheter removed over the exchange wire. A 5 panamanian JR4 catheter in over wire. Multiple views taken of right coronary artery. Catheter removed over the exchange wire. A 5 panamanian Angled Pig catheter in over wire. EDP Sample taken: LV 117/-5,24; HR: 65 BPM; SpO2: 96%. LV gram performed in IVAN @ 10 mL/second for a total of 30 mL. EDP Sample taken: LV 121/-2,24; HR: 66 BPM; SpO2: 96%. Pullback taken: LV 121/-2,26; AO 120/65(89); Mean: 0mmHg, Peak to Peak: 0mmHg, SEP: 19sec/min; HR: 65 BPM; SpO2: 96%. Side port of sheath attached to Normal Saline flush at KVO to maintain patency. Post Procedure: Pulses reassessed and unchanged. PERRLA. Strong, equal hand vp customer development bilaterally. Medication's Wasted: Lidocaine 1% = 2 mL. Medication's Wasted: Nitro = 50 mg. Medication's Wasted: Heparin = 1000 unit. Medication's Wasted: Other = Fentanyl 50 mcg. Medication's Wasted: Other = Versed 1 mg. Total IV fluids: 281 mL. Post-op diagnosis: Moderate CAD. Complications: None. Estimated blood loss: 5mL-10mL. Responsiveness - Normal response to verbal stimuli; alert and oriented, PERRLA. Airway - Unaffected, no intervention required; spontaneous ventilation. Circulation: W/N/L, pulses unchanged. Nausea/Vomiting: N/A. A TR Band was successful obtaining hemostatsis at the Right Radial artery insertion site. Procedure completed. Patient transferred by bed to CPRU. Vital chart was stopped. Access Site Site: Right Radial artery Sheath Size: 6 Fr Hemostasis Method: TR Band Hemostasis Success: Successful Procedure Medications Start: 6:58 AM Stop: 6:58 AM Medication: Versed Amount: 1 mg Route: I.V. Start: 6:58 AM Stop: 6:58 AM Medication: Fentanyl Amount: 50 mcg Route: I.V. Start: 7:08 AM Stop: 7:08 AM Medication: Verapamil Amount: 5 mg Route: I.A. Start: 7:08 AM Stop: 7:08 AM Medication: 0.9% Saline Amount: 250 ml Route: I.V. bolus Start: 7:12 AM Stop: 7:12 AM Medication: Heparin Amount: 5000 units Route: I.V. I, the attending physician, have reviewed and verified all procedure medications. Yes, all medications given per verbal order History/Risk Factors Hypertension: Yes Dyslipidemia: No Peripheral Arterial Disease (PAD): No Myocardial Infarction (VT): No Obesity: No Renal Disease: No Prior Interventions PCI: No CABG: No Valve Surgery: No Report Signatures Finalized by Dr Nasrin Echeverria MD [facility] on 04/11/2022 12:13 AM
[2022-04-10] MEDS: diphenhydrAMINE 50 mg Capsule PO (06:28)
--- NOTE | 2022-04-10 06:42 | P.HPUD_ITS ---
Surgery/Procedure H&P Update DATE OF PROCEDURE: April 10, 2022 DATE H&P PERFORMED: 04/03/22 H&P UPDATE INFORMATION: I have reviewed H&P completed within last 30 days, I have examined patient prior to procedure and No changes to prior documentation PREOP DIAGNOSIS: ASHD PRIMARY INDICATION FOR PROCEDURE: Patient with chest pain and abnormal Myocardial perfusion imaging PLANNED PROCEDURE: Operation Date: 04/10/22 07:00 Proposed Procedures p [facility] 89109,R94.39(Left) - Nasrin Echeverria MD PATIENT REASSESSED PRIOR TO SEDATION, WITH NO CHANGE NOTED: Yes PHYSICAL EXAM: alert, oriented x 3, clear to auscultation bilaterally and regular rate & rhythm AIRWAY EVAL/ANESTHESIA PLAN: normal airway, ASA II, Monitored Anesthesia, Local Anesthesia, Risks, benefits & alternatives of sedation and/or procedure discussed and Patient agrees to continue as planned
[2022-04-10 06:47] LABS: Basophils # 0.1 10^3/uL (0.0-0.1); Basophils % 0.9 %; Eosinophils # 0.5 10^3/uL (0.0-0.8); Eosinophils % 8.1 %; Hematocrit 42.6 % (42.0-52.0); Hemoglobin 14.1 g/dL (11.7-16.6); Lymphocytes # 1.6 10^3/uL (0.8-4.8); Lymphocytes % 27.5 %; Mean Corpuscular HGB Conc 33.1 g/dL (30.0-36.0); Mean Corpuscular Hemoglobin 29.9 pg (28.0-34.0); Mean Corpuscular Volume 90.3 fl (80-94); Mean Platelet Volume 9.1 fL (7.4-10.4); Monocytes # 0.5 10^3/uL (0.2-0.9); Monocytes % 8.8 %; Neutrophils # 3.09 10^3/uL (1.8-7.7); Neutrophils % 54.5 %; Nucleated Red Blood Cells % 0 %; Platelet Count 202 10^3/cmm (130-400); Red Blood Count 4.72 10^6/uL (4.1-5.3); White Blood Count 5.7 10^3/uL (4.0-10.0)
[2022-04-10 07:03] LABS: INR 0.93 (0.8-1.2)
[2022-04-10 07:12] LABS: Anion Gap 15.2 (5-19); Blood Urea Nitrogen 13 mg/dL (8-23); Calcium 9.6 mg/dL (8.5-10.5); Carbon Dioxide 26 mmol/L (22-29); Chloride 103 mmol/L (98-107); Glucose 91 mg/dL (65-115); Osmolality Calculated 290 mOsm/kg (285-295); Potassium 4.2 mmol/L (3.5-5.1); Sodium 140 mmol/L (136-145)
--- NOTE | 2022-04-10 07:54 | SUR.PHASEII ---
RECOVERY NOTE Patient to recovery room 3 status post cardiac catheterization via the right radial approach. TR band in place- no hematoma noted. Verbal post cath instructions given to family/patient which they verbalized understanding. Call light in easy reach. Informed to call for needs.
--- NOTE | 2022-04-10 08:08 | SUR.PHASEII ---
POST OP FLUIDS IV NS AT 75 ML/HR UNTIL D/C. INFUSING ORDERED.
== END 2022-04-10 12:04 | disposition home or self-care (01) ==
PROVIDERS: PCP Nurse Practitioner Family; Visit Provider Internal Medicine Cardiovascular Disease
DX: I25.10 Atherosclerotic heart disease of native coronary artery without angina pectoris (principal); I10 Essential (primary) hypertension; R00.0 Tachycardia, unspecified
CPT/HCPCS: 36415; 80048; 85025; 85610; 93458; 96360; 96361; 99152; 99153; C1769; C1887; C1894; J1644; J2250; J3010; J3490; J7030; Q0163; Q9967

== ENCOUNTER → 2022-04-17 10:32 | Outpatient (BNVA) | payer MEDICARE, SELFPAY | PROVIDERS: PCP Nurse Practitioner Family; Visit Provider Nurse Practitioner Family | DX: I25.10 Atherosclerotic heart disease of native coronary artery without angina pectoris (principal); I10 Essential (primary) hypertension | CPT/HCPCS: 80048; 99213; 99214 ==

== ENCOUNTER 2022-04-24 10:06 | Outpatient (CLI) | payer MEDICARE, SELFPAY ==
[2022-04-24 11:11] LABS: Blood Urea Nitrogen 16 mg/dL (8-23); Calcium 9.9 mg/dL (8.5-10.5); Carbon Dioxide 23 mmol/L (22-29); Chloride 96 mmol/L (98-107); Glucose 86 mg/dL (65-115); Osmolality Calculated 272 mOsm/kg (285-295); Sodium 131 mmol/L (136-145)
[2022-04-24 11:13] LABS: Anion Gap 16.7 (5-19); Potassium 4.7 mmol/L (3.5-5.1)
== END 2022-04-24 10:07 | disposition home or self-care (01) ==
PROVIDERS: PCP Nurse Practitioner Family; Visit Provider Nurse Practitioner Family
DX: I25.10 Atherosclerotic heart disease of native coronary artery without angina pectoris (principal); R00.0 Tachycardia, unspecified; R94.39 Abnormal result of other cardiovascular function study
CPT/HCPCS: 36415; 80048